=== PATIENT | female | born 1995 | race Caucasian/White ===

== ENCOUNTER 2022-04-07 13:56 | Emergency (ER) | payer OTHER ==
[2022-04-07 14:32] LABS: Glucose,Whole Blood 98 mg/dL (70-110)
--- NOTE | 2022-04-07 14:53 | ED ---
General Adult HPI - General Chief complaint: Altered Mental Status Stated complaint: Syncope Time Seen by Provider: 04/07/22 14:28 Source: patient Mode of arrival: ambulatory Limitations: no limitations - History of Present Illness Initial comments: Dictation was produced using Nanali dictation software. please excuse any grammatical, word or spelling errors. Chief Complaint: 27-year-old female brought to the emergency department for altered mental status History of Present Illness: A 7-year-old female she presents to the emergency department for altered mental status. Patient was brought here by her boss. She has no recollection of the events that transpired for approximately one hour. Patient states that earlier today she was getting ready for work when the next thing she remembers was being in her [employer] car en route to the emergency department. Patient was told that she was in an argument with her boyfriend and perhaps may be had a syncopal event. She does not recall any of that. She does not recall talking to her boss over the phone. However her boss realize that she was abnormal picked her up and brought her to the ER. Patient has no complaints today. Patient occasionally smokes marijuana but does not do any other illicit drugs or alcohol. Denies any numbness and paresthesias to the arms or legs. She states she feels at baseline now. There is concern that perhaps may be patient traumatize her head some point today. Patient denies any headache or neck pain. The ROS documented in this emergency department record has been reviewed and confirmed by me. Those systems with pertinent positive or negative responses have been documented in the HPI. All other systems are other negative and/or noncontributory. PHYSICAL EXAM: General Impression: Alert and oriented x3, not in acute distress HEENT: Normocephalic atraumatic, extra-ocular movements intact, pupils equal and reactive to light bilaterally, mucous membranes moist. Cardiovascular: Heart regular rate and rhythm Chest: Able to complete full sentences, no retractions, no tachypnea Abdomen: abdomen soft, non-tender, non-distended, no organomegaly Musculoskeletal: Pulses present and equal in all extremities, no peripheral edema Motor: no focal deficits noted Neurological: CN II-XII grossly intact, no focal motor or sensory deficits noted Skin: Intact with no visualized rashes Psych: Normal affect and mood ED course: 27-year-old female presents to the emergency department for altered mental status. Physical examination is benign. Vital signs upon arrival are within acceptable limits. Patient does not appear to be altered at the bedside. Return evaluation obtained. CBC, metabolic panel is unremarkable. Computed edgardo ography scan of brain and C-spine is unremarkable for any acute processes. Patient observed in the emergency department for approximately 2 hours and 16 minutes per she is reevaluated at bedside at 4:15 PM to be stable medical condition. There is concern that perhaps maybe patient suffered from co ncussion. Nonetheless, patient not exhibiting any high-risk features. She is young healthy and has no complaints upon reevaluation. No intracranial acute processes. Patient told to follow-up with her primary care doctor. EKG interpretation: Ventricular rate 74, sinus rhythm, ME interval 120, ears 85, QTc 44. No ME prolongation, no QTC prolongation, no ST or T-wave changes noted. Overall, this EKG is unremarkable - Related Data Home Medications Medication Instructions Recorded Confirmed No Known Home Medications 04/07/22 04/07/22 Allergies Allergy/AdvReac Type Severity Reaction Status Date / Time No Known Allergies Allergy Verified 04/07/22 14:55 Review of Systems ROS Statement: Those systems with pertinent positive or pertinent negative responses have been documented in the HPI. ROS Other: All systems not noted in ROS Statement are negative. Past Medical History Past Medical History: No Reported History History of Any Multi-Drug Resistant Organisms: None Reported Past Surgical History: Section Past Psychological History: No Psychological Hx Reported Smoking Status: Current some day smoker Past Alcohol Use History: Occasional Past Drug Use History: Marijuana General Exam Limitations: no limitations Course Vital Signs 04/07/22 14:02 Temperature 97.2 F L Pulse Rate 82 Respiratory 16 Rate Blood Pressure 118/71 O2 Sat by Pulse 96 Oximetry Medical Decision Making - Lab Data Result diagrams: 04/07/22 15:07 04/07/22 15:07 Lab Results 04/07/22 04/07/22 04/07/22 Range/Units 14:31 15:07 15:07 WBC 6.7 (3.8-10.6) k/uL RBC 4.24 (3.80-5.40) m/uL Hgb 13.2 (11.4-16.0) gm/dL Hct 39.1 (34.0-46.0) % MCV 92.2 (80.0-100.0) fL MCH 31.2 (25.0-35.0) pg MCHC 33.9 (31.0-37.0) g/dL RDW 11.8 (11.5-15.5) % Plt Count 302 (150-450) k/uL MPV 7.7 Neutrophils % 81 % Lymphocytes % 15 % Monocytes % 3 % Eosinophils % 1 % Basophils % 1 % Neutrophils # 5.4 (1.3-7.7) k/uL Lymphocytes # 1.0 (1.0-4.8) k/uL Monocytes # 0.2 (0-1.0) k/uL Eosinophils # 0.0 (0-0.7) k/uL Basophils # 0.0 (0-0.2) k/uL Sodium 139 (137-145) mmol/L Potassium 4.0 (3.5-5.1) mmol/L Chloride 109 H (98-107) mmol/L Carbon Dioxide 23 (22-30) mmol/L Anion Gap 7 mmol/L BUN 7 (7-17) mg/dL Creatinine 0.72 (0.52-1.04) mg/dL Est GFR (CKD-EPI)AfAm >90 (>60 ml/min/1.73 sqM) Est GFR (CKD-EPI)NonAf >90 (>60 ml/min/1.73 sqM) Glucose 96 (74-99) mg/dL POC Glucose (mg/dL) 98 (70-110) mg/dL POC Glu Can Line Examiner ID Harini Trinidad Calcium 9.3 (8.4-10.2) mg/dL HCG, Quant <2.4 mIU/mL Disposition Clinical Impression: Altered mental status Disposition: HOME SELF-CARE Condition: Fair Instructions (If sedation given, give patient instructions): Altered Mental Status (ED) Is patient prescribed a controlled substance at d/c from ED?: No Referrals: Rogers Mena MD [REFERRING] - 1-2 days Time of Disposition: 16:23
[2022-04-07 15:21] LABS: Basophils % (A) 1 %; Eosinophils % (A) 1 %; HCT 39.1 % (34.0-46.0); HGB 13.2 gm/dL (11.4-16.0); Lymphocytes % (A) 15 %; MCH 31.2 pg (25.0-35.0); MCHC 33.9 g/dL (31.0-37.0); MCV 92.2 fL (80.0-100.0); Mean Platelet Volume 7.7; Monocytes # (A) 0.2 k/uL (0-1.0); Monocytes % (A) 3 %; Neutrophils # (A) 5.4 k/uL (1.3-7.7); Neutrophils % (A) 81 %; Platelet Count 302 k/uL (150-450); RBC 4.24 m/uL (3.80-5.40); RDW 11.8 % (11.5-15.5); WBC 6.7 k/uL (3.8-10.6)
[2022-04-07 15:23] LABS: African American GFR (CKD) >90 (>60 ml/min/1.73 sqM); Anion Gap 7 mmol/L; Blood Urea Nitrogen 7 mg/dL (7-17); Calcium 9.3 mg/dL (8.4-10.2); Carbon Dioxide 23 mmol/L (22-30); Chloride 109 mmol/L (98-107); Glucose 96 mg/dL (74-99); Non-African American GFR(CKD) >90 (>60 ml/min/1.73 sqM); Sodium 139 mmol/L (137-145)
[2022-04-07 15:40] LABS: HCG,Quantitative Serum <2.4 mIU/mL
--- NOTE | 2022-04-07 16:12 | CT ---
EXAMINATION TYPE: CT brain cspine wo con CT DLP: 1290.9 mGycm, Automated exposure control for dose reduction was used. DATE OF EXAM: 04/07/2022 3:55 PM COMPARISON: None. CLINICAL INDICATION:Female, 27 years old with history of altered mental status, trauma; Altered menta l status, possibly hit head. TECHNIQUE: Brain: Multiple axial CT images of the brain were obtained without IV contrast. Cspine: Axial CT images from the skull base to the inferior aspect of T2 we obtained without intraven ous contrast. Coronal and sagittal reformatted images were also reviewed. FINDINGS: Brain: Extra-axial spaces: No abnormal extra-axial fluid collections. Ventricular system: Within normal limits Cerebral parenchyma: No acute intraparenchymal hemorrhage or mass effect. The curiel-white junction is well differentiated. Cerebellum: Unremarkable. Mass effect: No evidence of midline shift. Intracranial vasculature: unremarkable Soft tissues: Normal. Calvarium/osseous structures: No depressed skull fracture. Paranasal sinuses and mastoid air cells: Clear. Visualized orbits: Orbital contents are intact. Cervical spine: Fracture: None. Osseous structures: Unremarkable Vertebral alignment: Within normal limits. Spinal canal/Neural Foramina: No evidence of significant spinal canal narrowing. No evidence for sign ificant neural foraminal stenosis. Neck soft tissues: Prevertebral soft tissues are within normal limits. Other: The airway is patent. The lung apices are clear. IMPRESSION: 1. No acute intracranial process. 2. No evidence of cervical spine fracture.
[2022-04-07 16:45] VITALS: BP 115/75; PULSE 91; RESP 18; TEMP 97.8
== END 2022-04-07 16:45 | disposition home or self-care (01) ==
LOC: EC 13:56
DX: R41.82 Altered mental status, unspecified (principal); F17.200 Nicotine dependence, unspecified, uncomplicated; Z72.89 Other problems related to lifestyle; F12.90 Cannabis use, unspecified, uncomplicated
CPT/HCPCS: 36415; 70450; 72125; 80048; 84702; 85025; 99285

== ENCOUNTER → 2023-01-09 | Outpatient (CLI) | payer BC, OTHER | END | disposition home or self-care (01) | LOC: LABWHC1 10:08 | PROVIDERS: ATTEND Family Medicine | DX: E05.90 Thyrotoxicosis, unspecified without thyrotoxic crisis or storm (principal) | CPT/HCPCS: 36415; 84439; 84443; 84481 ==

== ENCOUNTER → 2024-08-18 | Outpatient (CLI) | payer BC ==
--- NOTE | 2024-08-18 16:58 | US ---
EXAMINATION TYPE: Transabdominal DATE OF EXAM: 08/18/2024 9:37 AM COMPARISON: NONE CLINICAL INDICATION: Female, 29 years old with history of Z34.90 ENCNTR FOR SUPRVSN OF NORMAL PREGNAN CY, UNS; Hx 2 c sections. . TECHNIQUE: Transabdominal (TA) with grayscale and color Doppler imaging including first trimester pre gnancy. FINDINGS: EXAM MEASUREMENTS: GESTATIONAL AGE / DATING Physician Established: Not yet established Dates by LMP: (9 weeks/6 days) EDC: 03/17/2025 Dates by First Scan: This is first scan Dates by Current Scan for: (9 weeks/6 days) EDC: 03/17/2025 MATERNAL ANATOMY Uterus: 10.3 x 8.6 x 8.0 cm. Right Ovary: 3.9 x 2.7 x 1.8 cm Left Ovary: 3.5 x 2.4 x 2.5 cm Post CDS / Adnexa: Free fluid seen in CDS. Presence of free fluid: Free fluid seen in CDS. Presence of corpus luteal cyst: Possible within left ovary- anechoic area seen = 1.3 x 1.2 x 1.1 cm. Presence of subchorionic bleed: ?Possible- hypoechoic area seen left of gestational sac= 1.6 x 0.7 x 0.9 cm. GESTATION / SURVEY CRL: 2.89 cm (9 weeks/6 days) Gestational Sac morphology: Normal Yolk Sac (normal less than 6mm): 3.1 mm Heart Rate: 169 bpm Rhythm: Normal IUP: Viable IUP Date of LMP: 06/10/2024 Beta HcG (if available): Not available IMPRESSION: 1. Single intrauterine gestation estimated at 9 weeks 6 days gestation based on the crown-rump length . Cardiac activity measures 169 bpm. [facility], , 08/18/2024 4:56 PM
== END | disposition home or self-care (01) ==
LOC: RADUSWWP 09:06
PROVIDERS: ATTEND Family Medicine
DX: Z34.91 Encounter for supervision of normal pregnancy, unspecified, first trimester (principal); Z3A.09 9 weeks gestation of pregnancy
CPT/HCPCS: 76801

== ENCOUNTER → 2024-10-24 | Outpatient (CLI) | payer BC ==
--- NOTE | 2024-10-24 13:58 | US ---
EXAMINATION TYPE: US OB anatomy transabd DATE OF EXAM: 10/24/2024 COMPARISON: 08/18/2025 CLINICAL INDICATION: Female, 29 years old with history of Z34.90 ; Anatomy per office TECHNIQUE: Transabdominal (TA) with grayscale imaging of single gestation. FINDINGS: EXAM MEASUREMENTS: GESTATIONAL AGE / DATING Physician Established: (19 weeks/3 days) Dates by Current Scan for: (19 weeks/6 days) EDC: SURVEY IUP: Single PLACENTA: Anterior PREVIA: No previa CECILIA: 9.97 cm Normal CERVICAL LENGTH (transabdominal: norm > 3.0cm): 3.75 cm (Supplemental transvaginal imaging performed to verify cervical length.) BIOMETRY PRESENTATION: Breech LIE: Longitudinal BPD: 4.41 cm 19 weeks / 3 days HC: 16.87 cm 19 weeks / 4 days AC: 14.93 cm 20 weeks / 2 days FL: 3.14 cm 19 weeks / 6 days ESTIMATED WEIGHT IN GRAMS: 321 grams ESTIMATED WEIGHT IN LBS/OZ: 0 lbs. 11 oz. WEIGHT PERCENTAGE BASED ON ESTABLISHED DATE: 74 % HC/AC: 1.13 Normal FL/AC: 21% Normal HEART RATE: 135 bpm RHYTHM: Normal ANATOMY SEEN (within normal limits): * Lateral Vent (< 1 cm) 1.11 cm * Cisterna Magna (< 1.1 cm) 0.35 cm * Nuchal Fold (< 0.6 cm) 1.75 cm * Cerebellum (varies with age) 1.88 cm Choroid Plexus (bilateral) Midline Falx Cavus Septi Pellucidi Four Chamber Heart Outflow tracts: LVOT/RVOT Stomach Situs Nose / Lips Diaphragm Kidneys (bilateral) Bladder Cord Insert Three Vessel Cord Longitudinal Spine Transverse Spine Arms (bilateral) Legs (bilateral) ANATOMY SEEN (does not appear within normal limits): ANATOMY NOT SEEN: All anatomy seen on this exam; Suboptimal views of the spine and 4 chamber heart but appe ar WNL MATERNAL WALL MEASUREMENT: Not provided cm from skin to anterior uterine wall (if exam limited due t o body habitus). IMPRESSION: Viable intrauterine in breech presentation estimated 19 weeks 6 days with a heart rate of 1 35 bpm. A limited assessment of spine and four-chamber heart view as discussed above. Would rec ommend a short-term follow-up. [facility], , 10/24/2024 1:55 PM
== END | disposition home or self-care (01) ==
LOC: RADUSWWP 12:25
PROVIDERS: ATTEND Family Medicine
DX: O32.1XX0 Maternal care for breech presentation, not applicable or unspecified (principal); Z3A.19 19 weeks gestation of pregnancy
CPT/HCPCS: 76811

== ENCOUNTER 2025-03-13 10:21 | Inpatient (IN) | payer BC ==
[2025-03-13] MEDS ORDERED: OXYTOCIN 10 UNIT/ML 1 ML VIAL IM PRN (10:52)
[2025-03-13] MEDS ORDERED: miSOPROStoL 200 MCG TAB PO PRN (10:52)
[2025-03-13] MEDS ORDERED: CARBOPROST TROMETHAMINE 250 MCG/ML 1 ML AMP IM PRN (10:52)
[2025-03-13] MEDS ORDERED: METHYLERGONOVINE 0.2 MG/ML 1 ML AMP IM PRN (10:52)
[2025-03-13] MEDS ORDERED: TRANEXAMIC 1,000 MG/100ML-NACL 1,000 MG in EMPTY BAG 1 BAG IV PRN (10:52)
[2025-03-13 11:12] LABS: Basophils # (A) 0.02 10*3/uL (0.00-0.10); Basophils % (A) 0.3 %; Eosinophils # (A) 0.03 10*3/uL (0.04-0.35); Eosinophils % (A) 0.4 %; HCT 35.2 % (37.2-46.3); Lymphocytes # (A) 1.49 10*3/uL (0.90-5.00); Lymphocytes % (A) 21.1 %; MCH 31.5 pg (27.0-32.0); MCHC 34.1 g/dL (32.0-37.0); MCV 92.4 fL (80.0-97.0); Mean Platelet Volume 11.6 fL (9.5-12.2); Monocytes # (A) 0.52 10*3/uL (0.20-1.00); Monocytes % (A) 7.4 %; Neutrophils # (A) 4.98 10*3/uL (1.80-7.70); Neutrophils % (A) 70.4 %; Platelet Count 250 10*3/uL (140-440); RBC 3.81 10*6/uL (4.10-5.20); WBC 7.07 10*3/uL (4.50-10.00)
[2025-03-13] MEDS: LACTATED RINGERS 1,000 ML IV ONE (11:14)
[2025-03-13] MEDS: CITRIC ACID-SODIUM CITRATE 15 ML CUP PO ONE (11:17)
--- NOTE | 2025-03-13 11:41 | P.HPOB ---
History of Present Illness H&P Date: 03/13/25 Chief Complaint: 39+ weeks, previous section x 2 requesting repeat, undesired ferti 29-year-old 3 para 2-0-0-2 admitted at 6 weeks as established by last menstrual period and confirmed by 21-week ultrasound. She is admitted for repeat low-transverse section having had 2 previous sections. She has additionally requested intraoperative bilateral salpingectomy. She understands the permanent nature of the procedure. Her has otherwise been uncomplicated though she has a remote history of HSV. on labor delivery, all signs are reassuring with a category 1 heart rate tracing. Group B strep status is negative. Obstetrical history: 3 para 2-0-0-2 with 2 term deliveries without complication. Current statistics are listed 03/17/2025 was established by last menstrual period and confirmed by 21-week ultrasound. Laboratory workup demonstrates a blood type of A+ with a negative antibody scree n immune. The remainder of the laboratory workup was within normal limits. 1 hour Glucola was normal and group B strep status is negative. Gynecologic history: No history of infections to include STDs aside from the history of HSV as noted above for which she has been prophylaxed since 36 weeks. Review of Systems Review of systems is confined to history of present illness. Past Medical History Past Medical History: No Reported History Additional Past Medical History / Comment(s): preeclampsia after second delivery History of Any Multi-Drug Resistant Organisms: None Reported Past Surgical History: Section Past Anesthesia/Blood Transfusion Reactions: No Reported Reaction Past Psychological History: Anxiety, Depression Smoking Status: Current some day smoker Past Alcohol Use History: Occasional Past Drug Use History: Marijuana - Past Family History Father History Unknown: Yes Medications and Allergies Home Medications Medication Instructions Recorded Confirmed Type Aspirin 81 mg PO DAILY 03/13/25 03/13/25 History Vit No.179/Iron/Folic 1 each PO DAILY 03/13/25 03/13/25 History [ Tablet] valACYclovir HCL [Valacyclovir] 500 mg PO DAILY 03/13/25 03/13/25 History Allergies Allergy/AdvReac Type Severity Reaction Status Date / Time No Known Allergies Allergy Verified 03/13/25 10:50 Exam Vital Signs Temp Pulse Resp BP Pulse Ox 03/13/25 10:48 97.4 F L 78 18 123/78 97 Intake and Output 03/12/25 03/13/25 03/13/25 22:59 06:59 14:59 Other: Weight 86.183 kg In general, this is a well-developed, well-nourished white. Her heart has a regular rhythm and rate without murmur. Her lungs are clear to auscultation bilateral in all gee. Her abdomen is gravid, nondistended, has normal active bowel sounds, soft, nontender, and without any palpable masses aside from the uterine fundus. Her extremities are without any cyanosis, clubbing, or edema and are nontender to palpation bilaterally. Digital cervical examination is de ferred. Results Result Diagrams: 03/13/25 10:50 Abnormal Lab Results - Last 24 Hours (Table) 03/13/25 Range/Units 10:50 RBC 3.81 L (4.10-5.20) 10*6/uL Hct 35.2 L (37.2-46.3) % Eosinophils # 0.03 L (0.04-0.35) 10*3/uL Assessment and Plan (1) Term Current Visit: Yes Status: Acute Code(s): Z34.90 - ENCNTR FOR SUPRVSN OF NORMAL , UNSP, UNSP TRIMESTER SNOMED Code(s): 02359497 (2) Previous section Current Visit: Yes Status: Acute Code(s): Z98.891 - HISTORY OF UTERINE SCAR FROM PREVIOUS SURGERY SNOMED Code(s): 063802665 (3) Family planning Current Visit: Yes Status: Acute Code(s): Z30.09 - ENCOUNTER FOR OT GENERAL CNSL AND ADVICE ON CONTRACEPTION SNOMED Code(s): 181739418 Plan: The patient is admitted for repeat low-transverse section with intraoperative bilateral salpingectomy. The risks and complications of the procedures as well as the permanent nature of salpingectomy have been thoroughly discussed and she has understood and agreed to proceed.
[2025-03-13] MEDS: ceFAZolin 2 GM in DEXTROSE 5% IN WATER 50 ML IVPB ONE (11:45)
[2025-03-13 12:04] LABS: Amphetamine Screen,Urine Not Detected (NotDetected); Barbiturate Screen,Urine Not Detected (NotDetected); Benzodiazepines Screen,Urine Not Detected (NotDetected); Cocaine Screen,Urine Not Detected (NotDetected); Methadone Screen, Urine Not Detected (NotDetected); Opiate Screen,Urine Not Detected (NotDetected); Oxycodone Screen, Urine Not Detected (NotDetected); Phencyclidine Screen,Urine Not Detected (NotDetected); Tricyclic Antidepressant,Urine Not Detected (NotDetected); Urn Cannabinoid Scrn Detected (NotDetected)
[2025-03-13] MEDS ORDERED: PHENYLEPHRINE-0.9% NACL SYG 1,000 MCG/10 ML SYRINGE ONE (12:09)
[2025-03-13] MEDS ORDERED: NALBUPHINE (ANES) 10 MG/ML - 1 ML AMP ONE (12:09)
[2025-03-13] MEDS ORDERED: ONDANSETRON 4 MG/2 ML VIAL ONE (12:09)
[2025-03-13] MEDS ORDERED: KETOROLAC 30 MG/ML 1 ML VIAL ONE (12:09)
[2025-03-13] MEDS ORDERED: OXYTOCIN 30 UNITS/500 ML NS BAG IV ONE (12:09)
[2025-03-13] MEDS ORDERED: MORPHINE SULFATE (PF) 0.3 MG/0.3 ML SYR ONE (12:09)
[2025-03-13] MEDS ORDERED: diphenhydrAMINE 50 MG CAP PO PRN (13:08)
[2025-03-13] MEDS ORDERED: LANOLIN CREAM 1 GM TUBE TOPICAL PRN (13:08)
[2025-03-13] MEDS ORDERED: SIMETHICONE 80 MG CHEWABLE PO PRN (13:08)
[2025-03-13] MEDS ORDERED: diphenhydrAMINE 25 MG CAP PO PRN (13:08)
[2025-03-13] MEDS ORDERED: diphenhydrAMINE 50 MG/ML 1 ML VIAL IVP PRN ×2 (13:08)
[2025-03-13] MEDS ORDERED: NALOXONE 0.4 MG/ML 1 ML VIAL IV PRN (13:08)
[2025-03-13] MEDS ORDERED: ONDANSETRON 4 MG/2 ML VIAL IVP PRN (13:08)
[2025-03-13] MEDS ORDERED: ZOLPIDEM 5 MG TAB PO PRN (13:08)
[2025-03-13] MEDS ORDERED: METOCLOPRAMIDE 5 MG/ML 2 ML VIAL IVP PRN (13:08)
[2025-03-13] MEDS ORDERED: OXYTOCIN 30 UNITS/500 ML NS 30 UNIT in SALINE 1 500ML.BAG IV SCH (13:15)
--- NOTE | 2025-03-13 13:18 | P.OP ---
Date of Procedure: 03/13/25 Preoperative Diagnosis: 1. 39+ weeks intrauterine #2. Previous section x 2 #3. Undesired fertility Postoperative Diagnosis: Same Procedure(s) Performed: #1. Repeat low-transverse section #2. Intraoperative bilateral salpingectomy Anesthesia: spinal Surgeon: Nikita Britton Slip Cover Cutter #1: Sade Rose Estimated Blood Loss (ml): 560 IV fluids (ml): 1,000 Urine output (ml): 50 Pathology: none sent Condition: stable Disposition: floor Operative Findings: The patient was taken to the operating room where she was delivered by repeat low-transverse section of a viable 8 pound 12 ounce baby girl with Apgars of 9 at 1 minute and 9 at 5 minutes. There was a cord x 1 which was reduced prior to delivery of the infant's body. The uterus, tubes, and ovaries were entirely normal to inspection though the lower uterine was extraordinarily thin. Is also relatively high on the uterus and there was an average amount of scarring at the fascia and rectus muscles. The bilateral fallopian tubes were removed with the LigaSure device and sent as a single specimen to pathology for diagnoses. Description of Procedure: The patient was prepped and draped in usual fashion after spinal anesthesia was administered by the anesthesiologist. A Pfannenstiel incision was made through her pre-existing scar and extended into the abdominal cavity without significant difficulty. The bladder peritoneum was noted to be scarred fairly high on the uterus and was elevated, incised, and reflected distally. The lower uterine segment was extraordinarily thin and was opened at the approximately 2 cm at which time a significant amount of clear fluid was noted. The incision was extended in both directions using the bandage scissors. The head was delivered up and through the incision where the nose and mouth were thoroughly suctioned. A nuchal cord x 1 was noted and reduced. The remainder of the infant was delivered onto the field, cut, and the passed resuscitative measures with weight and Apgars as noted. The placenta was delivered manually, intact, and grossly normal with a grossly normal three-vessel cord. The uterus was exteriorized and the anterior cavity the uterus swept of any remaining placental or membranous fragments. The margins of the uterine incision were grasped with Bhatt clamps and the incision closed in a single running locking stitch of 0 chromic catgut from margin to margin. Hemostasis appeared to be excellent. The posterior cul-de-sac was suctioned with a guard and a laparotomy sponge remain the patient's desire for tubal sterilization, the right fallopian tube was grasped at its fimbriated end and elevated then divided from the underlying tissues using the LigaSure device. The division was carried to the cornual insertion of the tube and the tube passed for pathological diagnoses. A similar operation was carried out on the left side without difficulty. Both tubes were placed into a single specimen cup. Hemostasis appeared to be excellent. The uterus was then replaced within the abdominal cavity and the gutters swept of any remaining blood, fluid, or clot. The incision was reexamined and found to be hemostatic. The parietal peritoneum was loosely reapproximated and the layer of muscles examined and made hemostatic with the Bovie. The fascia was closed with a single running locking stitch of 0 Vicryl proceeding from margin to margin. There was a point of bleeding in the right middle portion the subcutaneous tissues were made hemostatic with the Bovie and then reapproximated with a running stitch of 3-0 plain catgut. The skin was reapproximated with a running subcuticular stitch of 4-0 Vicryl followed by half-inch Steri-Strips placed with Mastisol. Quantitative blood loss for the case was 560 mL. All sponge, instrument, and needle counts were correct. There were no complications. The patient tolerated the procedure well and proceeded to the recovery room in stable condition. Both resting comfortably in recovery. A physician rn neurosurgical was utilized for the entire procedure due to the need for tissue retraction, dissection of vital structures, prevention and management of blood loss, and reduction in overall operative and anesthetic time as is the standard of care.
[2025-03-13] MEDS: ACETAMINOPHEN TAB 500 MG TAB PO SCH (16:44)
[2025-03-13] MEDS: LACTATED RINGERS 1,000 ML IV SCH (18:10)
[2025-03-13] MEDS: KETOROLAC 15 MG/ML 1 ML VIAL IVP PRN (20:42)
[2025-03-13] MEDS: SENNOSIDES-DOCUSATE SODIUM 1 EACH TAB PO SCH (20:46)
[2025-03-13] MEDS: IBUPROFEN 800 MG TAB PO SCH (21:51)
[2025-03-14 05:44] LABS: Basophils # (A) 0.02 10*3/uL (0.00-0.10); Basophils % (A) 0.2 %; Eosinophils # (A) 0.07 10*3/uL (0.04-0.35); Eosinophils % (A) 0.8 %; HCT 32.5 % (37.2-46.3); HGB 10.8 g/dL (12.0-15.0); Lymphocytes # (A) 1.28 10*3/uL (0.90-5.00); Lymphocytes % (A) 14.3 %; MCH 31.1 pg (27.0-32.0); MCHC 33.2 g/dL (32.0-37.0); MCV 93.7 fL (80.0-97.0); Mean Platelet Volume 11.7 fL (9.5-12.2); Monocytes # (A) 0.43 10*3/uL (0.20-1.00); Monocytes % (A) 4.8 %; Neutrophils # (A) 7.11 10*3/uL (1.80-7.70); Neutrophils % (A) 79.8 %; Platelet Count 211 10*3/uL (140-440); RBC 3.47 10*6/uL (4.10-5.20); RDW 12.9 % (11.5-14.5); WBC 8.92 10*3/uL (4.50-10.00)
[2025-03-14 08:11] VITALS: RESP 16
--- NOTE | 2025-03-14 08:28 | P.PNOBGPC ---
Subjective - Subjective Patient reports: Reports appetite normal, Reports voiding normally, Reports pain well controlled, Reports ambulating normally : doing well, nursing well Objective - Vital Signs Latest vital signs: Vital Signs Temp Pulse Resp BP Pulse Ox 03/14/25 08:00 97.9 F 96 16 126/69 97 03/14/25 00:00 63 18 132/81 03/13/25 20:00 98.1 F 49 L 16 120/76 95 03/13/25 15:13 97.2 F L 55 L 18 111/65 97 03/13/25 14:58 52 L 18 103/67 97 03/13/25 14:37 63 18 98/65 98 03/13/25 14:22 45 L 18 102/68 97 03/13/25 14:07 71 18 101/69 97 03/13/25 13:51 49 L 18 107/67 95 03/13/25 13:37 48 L 18 111/66 96 03/13/25 13:22 48 L 18 107/63 97 03/13/25 13:07 96.8 F L 58 L 16 118/61 97 03/13/25 10:48 97.4 F L 78 18 123/78 97 Intake and Output 03/13/25 03/14/25 03/14/25 22:59 06:59 14:59 Intake Total 200 Output Total 458 1200 250 Balance -258 -1200 -250 Intake: Oral 200 Output: Urine 20 1200 250 Uretheral (Charles) 300 Emesis 300 Output, Quantitative 138 Blood Loss - Exam Extremities: Present: normal Abdomen: Present: normal appearance, soft. Absent: distention, tenderness Incision: Present: normal, dry, intact Uterus: Present: normal, firm (The uterine fundus is appropriately tender below the umbilicus.) - Labs Labs: Abnormal Lab Results - Last 24 Hours (Table) 03/13/25 03/13/25 03/14/25 Range/Units 10:50 11:30 05:21 RBC 3.81 L 3.47 L (4.10-5.20) 10*6/uL Hgb 10.8 L (12.0-15.0) g/dL Hct 35.2 L 32.5 L (37.2-46.3) % Eosinophils # 0.03 L (0.04-0.35) 10*3/uL U Marijuana (THC) Screen Detected H (NotDetected) Assessment and Plan (1) Term Current Visit: Yes Status: Acute Code(s): Z34.90 - ENCNTR FOR SUPRVSN OF NORMAL , UNSP, UNSP TRIMESTER SNOMED Code(s): 06706966 (2) Previous section Current Visit: Yes Status: Acute Code(s): Z98.891 - HISTORY OF UTERINE SCAR FROM PREVIOUS SURGERY SNOMED Code(s): 111252006 (3) Family planning Current Visit: Yes Status: Acute Code(s): Z30.09 - ENCOUNTER FOR OT GENERAL CNSL AND ADVICE ON CONTRACEPTION SNOMED Code(s): 589384902 (4) S/P section Current Visit: Yes Status: Acute Code(s): Z98.891 - HISTORY OF UTERINE SCAR FROM PREVIOUS SURGERY SNOMED Code(s): 405079617 Plan: Continue routine and postoperative care. I have encouraged the patient to ambulate in the hallways routinely. I would anticipate discharge home tomorrow pending no complications.
[2025-03-14] MEDS ORDERED: ACETAMINOPHEN TAB 500 MG TAB PO SCH (16:00)
[2025-03-14] MEDS ORDERED: IBUPROFEN 800 MG TAB PO SCH (20:00)
[2025-03-15 08:17] VITALS: BP 117/75; PULSE 64; TEMP 98.4
--- NOTE | 2025-03-15 08:43 | P.DS ---
Providers Date of admission: 03/13/25 10:21 Expected date of discharge: 03/15/25 Attending physician: Nikita Britton Primary care physician: Stated None - Discharge Diagnosis(es) (1) Term Current Visit: Yes Status: Acute (2) Previous section Current Visit: Yes Status: Acute (3) Family planning Current Visit: Yes Status: Acute (4) S/P section Current Visit: Yes Status: Acute Hospital Course: The patient is a 29-year-old 3 para 2-0-0-2 admitted at 39+ weeks by good dating parameters. She is admitted for repeat low-transverse section with 2 previous sections. She additionally requested intraoperative bilateral salpingectomy. Her was otherwise uncomplicated. On labor delivery, all signs were reassuring with a category 1 heart rate tracing. She was taken to the operating room where she underwent repeat low-transverse section with bilateral salpingectomy in an uncomplicated fashion. She was delivered of a viable 8 pound 12 ounce baby girl with Apgars of 9 at 1 minute and 9 at 5 minutes. Her and postoperative course was unremarkable with vital signs remaining stable and her temperature was afebrile throughout. She was deemed stable for discharge on and postoperative day #2 and was discharged home to follow-up in the office in 2 weeks for an incision check in 6 weeks routinely. Discharge instructions included calling for any significantly increased bleeding or foul- smelling lochia, significantly increased fever or abdominal pain, perineal complaints, breast complaints, incisional complaints, or anything else that concerned her. Instructed to have nothing in the vagina for at least 6 weeks time to include intercourse and to abstain from any heavy lifting over the same period of time. Instructed to do no driving until off of all pain medications or 2 weeks time, whichever came first. She understood her instructions and agrees to follow-up as noted above. Discharge medications included continued vitamins as she has opted to breast-feed. She was otherwise to use [id number] analgesic pain medications or oxycodone 5 mg, 1-2 p.o. every 6 hours as needed pain, #20 dispensed with no refills. Maternal blood type is A+ and rubella status is immune. Discharge hemoglobin and hematocrit were 10.8 and 32.5 respectively. Procedures: #1. Repeat low-transverse section #2. Intraoperative bilateral salpingectomy Patient Condition at Discharge: Stable Plan - Discharge Summary New Discharge Prescriptions: No Action valACYclovir HCL [Valacyclovir] 500 mg PO DAILY Vit No.179/Iron/Folic [ Tablet] 1 each PO DAILY Aspirin 81 mg PO DAILY Discharge Medication List Aspirin 81 mg PO DAILY 03/13/25 [History] Vit No.179/Iron/Folic [ Tablet] 1 each PO DAILY 03/13/25 [History] valACYclovir HCL [Valacyclovir] 500 mg PO DAILY 03/13/25 [History] Follow up Appointment(s)/Referral(s): Nikita Britton MD [STAFF PHYSICIAN] - 03/30/25 3:00 pm (Post Appointment 04-25-2025 at 2:15pm) Discharge Disposition: HOME SELF-CARE
== END 2025-03-15 13:06 | disposition home or self-care (01) | DRG 784 ==
LOC: 4FBP 10:21
PROVIDERS: ADMIT Obstetrics & Gynecology; ATTEND Obstetrics & Gynecology
PROC: 0UB70ZZ Excision of Bilateral Fallopian Tubes, Open Approach (ICD-10-PCS; principal; 2025-03-13 12:24)
PROC: 10D00Z1 Extraction of Products of Conception, Low, Open Approach (ICD-10-PCS; principal; 2025-03-13 12:24)
DX: O34.211 Maternal care for low transverse scar from previous cesarean delivery (principal); Z30.2 Encounter for sterilization; O98.52 Other viral diseases complicating childbirth; B00.9 Herpesviral infection, unspecified; O99.324 Drug use complicating childbirth; O99.344 Other mental disorders complicating childbirth; O99.334 Smoking (tobacco) complicating childbirth; O69.81X0 Labor and delivery complicated by cord around neck, without compression, not applicable or unspecified; F32.A Depression, unspecified; Z37.0 Single live birth; F41.9 Anxiety disorder, unspecified; F12.90 Cannabis use, unspecified, uncomplicated; F17.200 Nicotine dependence, unspecified, uncomplicated; N85.8 Other specified noninflammatory disorders of uterus; Z3A.39 39 weeks gestation of pregnancy; Z79.899 Other long term (current) drug therapy; Z79.82 Long term (current) use of aspirin
CPT/HCPCS: 80306; 85025; 86850; 86900; 86901; 88302